=== PATIENT | female | born 1995 | race Caucasian/White ===

== ENCOUNTER 2016-08-18 13:54 | Outpatient (CLI) | payer BC | END 2016-08-18 15:50 | disposition home or self-care (01) | DX: O26.892 Other specified pregnancy related conditions, second trimester (principal); R10.30 Lower abdominal pain, unspecified; Z3A.22 22 weeks gestation of pregnancy ==

== ENCOUNTER 2016-09-16 15:41 | Outpatient (CLI) | payer BC | END 2016-09-16 15:42 | disposition home or self-care (01) | DX: Z36 Encounter for antenatal screening of mother (principal) ==

== ENCOUNTER 2017-12-17 15:08 | Outpatient (CLI) | payer BC ==
[2017-12-17 15:24] VITALS: BP 136/78
[2017-12-17 16:14] LABS: RUPTURE OF MEMBRANES PLUS NEGATIVE (NEGATIVE)
--- NOTE | 2017-12-17 17:03 | PROVIDER PROGRESS NOTE ---
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 EDC 02/01/18 by 2nd trim. US per patient hx (good historian) EGA 33 4/7 weeks with c/o questionable small and intermittent LOF x 36 hours, no large gush, no coitus in 24 hours, some cramping, denies painful and regular contractions. PMH: SVT PSH: Cardiac Ablation 10/2012 (medical records from last C/S admission 12/16/16-) LUST C/S 12/16/16 for known breech/declined ECV SHx: Denies smoking/etoh/drugs during Meds: PNV States she is supposed to be on metoprolol but has not taken it for last couple of years, does OK off medication ROS negative except for HPI O: VSS/AF Labs: SROM plus lab test negative SSE by me: normal physiologic d/c, no v/v lesions, sl. friable but visually and digitally closed cx using sterile glove. Slide test by me negative for ferning, Nitrazine and valsalva test both negative. HI done by me with following 4 pockets in cm: 2.79, 4.01, 2.80, 3.15, VTX on ABD US by me as well NST: Category 1 tracing with single mild contraction noted and some irritability CV RRR LCTAB ABD SNT UA pending A/P: # No SROM # UA pending: if + will Rx with ABX # Home with precautions # Has OB appt. scheduled next week, told to keep that appt. Spouse and patient's mother present during examination. Condition explained and all questions answered to their satisfaction. Objective - Vital Signs/Intake & Output Vital Signs: Vital Signs x48h Temp Pulse Resp BP Pulse Ox 12/17/17 15:18 36.9 C 110 H 18 136/78 H 99 - Lab Results Other Labs: Lab Results x24hrs 12/17/17 Range/Units 15:45 Membranes Rupture NEGATIVE (NEGATIVE)
[2017-12-17 17:07] LABS: BILIRUBIN,URINE NEGATIVE (NEGATIVE); GLUCOSE, URINE (UA) NEGATIVE (NEGATIVE); KETONES,URINE (UA) TRACE mg/dL (NEGATIVE); LEUKOCYTE ESTERASE, URINE NEGATIVE (NEGATIVE); NITRITE,URINE NEGATIVE (NEGATIVE); OCCULT BLOOD,URINE NEGATIVE (NEGATIVE); PROTEIN,URINE NEGATIVE (NEGATIVE); UROBILINOGEN,URINE 0.2 (NORMAL) E.U./dL (NORMAL)
[2017-12-17 17:08] LABS: CLARITY,URINE CLEAR (CLEAR)
== END 2017-12-17 16:50 | disposition home or self-care (01) ==
LOC: WFO 15:08 → FBP 15:10 → WFO 16:50
PROVIDERS: ATTEND Obstetrics & Gynecology
DX: O47.03 False labor before 37 completed weeks of gestation, third trimester (principal); O34.211 Maternal care for low transverse scar from previous cesarean delivery; Z3A.33 33 weeks gestation of pregnancy; Z86.79 Personal history of other diseases of the circulatory system
CPT/HCPCS: 81001; 81003; 84112; 87086; 99213